=== PATIENT | male | born 1975 | race Caucasian/White ===

== ENCOUNTER → 2018-01-09 | Outpatient (CLI) | payer SELFPAY | LOC: LABNPT 18:34 | PROVIDERS: ATTEND Nurse Practitioner Family | DX: L02.416 Cutaneous abscess of left lower limb (principal) | CPT/HCPCS: 87070; 87205 ==

== ENCOUNTER → 2021-03-23 | Outpatient (CLI) | payer OTHER ==
--- NOTE | 2021-03-23 19:25 | Diagnostic Imaging Report ---
INDICATION: Cough, shortness breath. COMPARISON: None. EXAMINATION: Frontal and lateral views of the chest. FINDINGS: Clear lungs, bilaterally. Heart is normal. There is no pneumothorax but osseous structures are normal. IMPRESSION: Negative chest. Dictated by: Dictated on workstation # [id number]
[2021-03-23 19:34] LABS: BASOPHILS # (AUTO) 0.1 10^3/uL (0.0-0.1); BASOPHILS % (AUTO) 1 % (0-10); EOSINOPHILS # (AUTO) 0.4 10^3/uL (0.0-0.3); EOSINOPHILS % (AUTO) 4 % (0-10); HEMATOCRIT 50 % (40-54); LYMPHOCYTES # (AUTO) 1.7 10^3/uL (1.0-4.0); LYMPHOCYTES % (AUTO) 21 % (12-44); MEAN CORPUSCULAR HEMOGLOBIN 32 pg (25-34); MEAN CORPUSCULAR HGB CONC 34 g/dL (32-36); MEAN CORPUSCULAR VOLUME 95 fL (80-99); MONOCYTES # (AUTO) 0.7 10^3/uL (0.0-1.0); MONOCYTES % (AUTO) 9 % (0-12); NEUTROPHILS # (AUTO) 5.3 10^3/uL (1.8-7.8); NEUTROPHILS % (AUTO) 65 % (42-75); PLATELET COUNT 248 10^3/uL (130-400); WHITE BLOOD COUNT 8.2 10^3/uL (4.3-11.0)
[2021-03-23 19:48] LABS: ALBUMIN 4.2 GM/DL (3.2-4.5)
[2021-03-23 19:49] LABS: CHLORIDE 107 MMOL/L (98-107); SODIUM 139 MMOL/L (135-145)
[2021-03-23 19:50] LABS: CALCIUM 9.4 MG/DL (8.5-10.1)
[2021-03-23 19:51] LABS: GLUCOSE 156 MG/DL (70-105); TOTAL PROTEIN 7.5 GM/DL (6.4-8.2)
[2021-03-23 19:52] LABS: CARBON DIOXIDE 20 MMOL/L (21-32)
[2021-03-23 19:53] LABS: BILIRUBIN,TOTAL 0.4 MG/DL (0.1-1.0)
[2021-03-23 19:54] LABS: ALKALINE PHOSPHATASE 88 U/L (40-136)
[2021-03-23 19:55] LABS: CREATININE SERUM 1.03 MG/DL (0.60-1.30); GFR ESTIMATED 91
[2021-03-23 19:56] LABS: BUN/CREATININE RATIO 12
[2021-03-23 19:58] LABS: ALANINE AMINOTRANSFERASE 34 U/L (0-55)
== END ==
LOC: RAD 19:04
PROVIDERS: ATTEND Physician Assistant
DX: I10 Essential (primary) hypertension (principal); R06.02 Shortness of breath; R05.8 Other specified cough; R07.89 Other chest pain
CPT/HCPCS: 36415; 71046; 80053; 82553; 83874; 84484; 85025; 85379

== ENCOUNTER 2022-04-27 06:11 | Emergency (ER) | payer OTHER ==
[~2022-04-27] VITALS: Ht 170.2 cm; Wt 108.9 kg
[2022-04-27] MEDS ORDERED: morphine INJ 10 MG/ML 1ML (SYR OR VIAL) IVP STA (06:23)
--- NOTE | 2022-04-27 06:32 | ED Abdominal Pain ---
General Chief Complaint: Abdominal/GI Problems Stated Complaint: ABD PAIN Source of Information: Patient Exam Limitations: No Limitations History of Present Illness Date Seen by Provider: Apr 27, 2022 Time Seen by Provider: 06:16 Initial Comments 46-year-old male presents to the emergency department for epigastric pain. Symptoms started about 5:00 this morning and have been intermittent but severe since that time. He will have brief episodes of severe stabbing type pains in his mid epigastric region, right upper quadrant and then have a few minutes of no pain. No nausea or vomiting. No radiation of the pain. No obvious aggravating or alleviating factors. Has had associated loose stools 4-5 times this morning, nonbloody. Has never had similar pains in the past. Has never had abdominal surgeries. Last normal bowel movement was yesterday evening. Denies any documented fevers but thinks he may have one now. No sick contacts. Chest pain or shortness of breath. He quit drinking alcohol heavily about 4 weeks ago, has been abstaining from alcohol since that time Allergies and Home Medications Allergies Coded Allergies: No Known Drug Allergies (Unverified , 04/27/22) Patient Home Medication List Home Medication List Reviewed: Yes Review of Systems Review of Systems Constitutional: no symptoms reported EENTM: No Symptoms Reported Respiratory: No Symptoms Reported Cardiovascular: No Symptoms Reported Gastrointestinal: Abdominal Pain, Diarrhea Genitourinary: No Symptoms Reported Musculoskeletal: no symptoms reported Skin: no symptoms reported Psychiatric/Neurological: No Symptoms Reported Endocrine: No Symptoms Reported Hematologic/Lymphatic: No Symptoms Reported Past Vdxthgx-Jotnht-Iowhpj Hx Patient Social History Tobacco Use?: Yes Use of E-Cig and/or Vaping dev: No Substance use?: No Alcohol Use?: Yes Alcohol type: Other (Quit drinking 4 weeks ago, previously heavy drinker) Family Medical History Reviewed Nursing Family Hx No Pertinent Family Hx Physical Exam Vital Signs Vital Signs - First Documented 04/27/22 06:17 Temp 36.7 Pulse 118 Resp 20 B/P (MAP) 168/136 (147) Pulse Ox 97 O2 Delivery Room Air Capillary Refill : Height/Weight/BMI Height: '" Weight: lbs. oz. kg; BMI Method: General Appearance: WD/WN, moderate distress, other (Patient has episodes of severe pain where this is abdomen. In between he has no pain and is comfortable in the bed) HEENT: normal ENT inspection, pharynx normal Neck: full range of motion, supple, normal inspection Respiratory: chest non-tender, lungs clear, normal breath sounds, no respiratory distress, no accessory muscle use Cardiovascular: regular rate, rhythm, no edema, no gallop, no JVD, no murmur Gastrointestinal: normal bowel sounds, soft, no organomegaly, tenderness (Tenderness palpation the epigastric region, right upper quadrant with voluntary guarding. No rebound tenderness. No mass organomegaly. No skin changes.) Extremities: normal range of motion, non-tender, normal inspection, normal capillary refill Back: normal inspection, no CVA tenderness, no vertebral tenderness Neurologic/Psychiatric: alert, normal mood/affect, oriented x 3 Skin: normal color, warm/dry Progress/Results/Core Measures Results/Orders Lab Results Laboratory Tests Test 04/27/22 06:34 Range/Units White Blood Count 17.1 H 4.3-11.0 10^3/uL Red Blood Count 6.19 H 4.30-5.52 10^6/uL Hemoglobin 19.4 H 13.3-17.7 g/dL Hematocrit 57 H 40-54 % Mean Corpuscular Volume 92 80-99 fL Mean Corpuscular Hemoglobin 31 25-34 pg Mean Corpuscular Hemoglobin Concent 34 32-36 g/dL Red Cell Distribution Width 13.2 10.0-14.5 % Platelet Count 281 130-400 10^3/uL Mean Platelet Volume 9.8 9.0-12.2 fL Immature Granulocyte % (Auto) 0 % Neutrophils (%) (Auto) 85 H 42-75 % Lymphocytes (%) (Auto) 8 L 12-44 % Monocytes (%) (Auto) 6 0-12 % Eosinophils (%) (Auto) 1 0-10 % Basophils (%) (Auto) 1 0-10 % Neutrophils # (Auto) 14.5 H 1.8-7.8 10^3/uL Lymphocytes # (Auto) 1.3 1.0-4.0 10^3/uL Monocytes # (Auto) 0.9 0.0-1.0 10^3/uL Eosinophils # (Auto) 0.2 0.0-0.3 10^3/uL Basophils # (Auto) 0.1 0.0-0.1 10^3/uL Immature Granulocyte # (Auto) 0.1 0.0-0.1 10^3/uL Neutrophils % (Manual) 88 % Lymphocytes % (Manual) 6 % Monocytes % (Manual) 5 % Eosinophils % (Manual) 1 % Basophils % (Manual) 0 % Band Neutrophils 0 % Blood Morphology Comment NORMAL Sodium Level 140 135-145 MMOL/L Potassium Level 4.3 3.6-5.0 MMOL/L Chloride Level 109 H 98-107 MMOL/L Carbon Dioxide Level 18 L 21-32 MMOL/L Anion Gap 13 5-14 MMOL/L Blood Urea Nitrogen 20 H 7-18 MG/DL Creatinine 1.03 0.60-1.30 MG/DL Estimat Glomerular Filtration Rate 91 BUN/Creatinine Ratio 19 Glucose Level 132 H 70-105 MG/DL Calcium Level 9.4 8.5-10.1 MG/DL Corrected Calcium 9.1 8.5-10.1 MG/DL Total Bilirubin 0.8 0.1-1.0 MG/DL Aspartate Amino Transf (AST/SGOT) 24 5-34 U/L Alanine Aminotransferase (ALT/SGPT) 34 0-55 U/L Alkaline Phosphatase 79 40-136 U/L Total Protein 7.9 6.4-8.2 GM/DL Albumin 4.4 3.2-4.5 GM/DL Lipase 20 8-78 U/L My Orders Orders - AREN BROUSSARD DO Comprehensive Metabolic Panel (04/27/22 06:23) Lipase (04/27/22 06:23) Cbc With Automated Diff (04/27/22 06:23) Morphine Injection (Morphine Injection (04/27/22 06:23) Ct Abdomen/Pelvis W (04/27/22 06:23) Ondansetron Injection (Zofran Injectio (04/27/22 06:45) Manual Differential (04/27/22 06:34) Iohexol Injection (Omnipaque 350 Mg/Ml 1 (04/27/22 07:45) Received Contrast (Hold Metformin- Contr (04/27/22 07:45) Ns (Ivpb) (Sodium Chloride 0.9% Ivpb Bag (04/27/22 07:45) Medications Given in ED Current Medications Medications Dose Ordered Sig/Thomas Route Start Time Stop Time Status Last Admin Dose Admin Ondansetron HCl 8 mg ONCE ONCE IVP 04/27/22 06:45 04/27/22 06:46 DC 04/27/22 06:47 8 MG Vital Signs/I&O 04/27/22 06:17 Temp 36.7 Pulse 118 Resp 20 B/P (MAP) 168/136 (147) Pulse Ox 97 O2 Delivery Room Air Departure Communication (Admissions) Patient is hemodynamically stable, nontoxic. He is afebrile. He does have leukocytosis, 17,000. We do not have ultrasound available on the weekends except to rule out certain things so CT scan is undertaken given the significant amount of pain that the patient has been, though it is intermittent. CT scan shows evidence of gallstones. Labs are unremarkable including normal LFTs, alk phos and lipase. There is no evidence for biliary obstruction at this time. No other indication for acute intra-abdominal emergency. No he does have a leukocytosis I doubt cholecystitis as he is afebrile and pain is intermittent. He has not had any pain since I gave him morphine early on in his emergency department course. He is drinking water now and had no recurrence of his symptoms. I spoke with Dr. Cruz at and discussed the case with him. He request the patient to follow-up in his clinic. I inquired about possible outpatient ultrasound ordered by myself. He states he probably does not need it given his symptomatology and CT scan findings. Comfortable agreeable discharge at this time and follow-up with general surgery for further evaluation and treatment. He will be discharged with pain medication, nausea medicine and recommendation to maintain a bland diet. He is given strict return precautions for severe pain is not controlled by medications, inability to tolerate p.o. I advise he could go to work but we will go ahead and give him a work note for Friday just in case he has pain that would cause limitation. Impression Primary Impression: Cholelithiasis Qualified Codes: K80.20 - Calculus of gallbladder without cholecystitis without obstruction Additional Impression: Biliary colic Disposition: HOME, SELF-CARE Condition: Stable Departure-Patient Inst. Referrals: DENNYS CRUZ MD NO,LOCAL PHYSICIAN (PCP) Primary Care Physician Patient Instructions: Gallstones (DC) Add. Discharge Instructions: Maintain a bland diet as discussed. [place] or fatty foods are likely to cause an increase in pain. Take the pain medication as prescribed as needed. This may make you drowsy or cause constipation. Do not drive or make important decisions while taking it and you may want to consider stool softener while taking it. Use the nausea medicine as needed by dissolving it under your tongue. Increase your fluids at home. Follow-up with Dr. Cruz by calling to schedule an appointment. Return to the emergency department for any severe pain that is not controlled by pain medications, fevers or if your symptoms change in any way concerning to you. All discharge instructions reviewed with patient and/or family. Voiced understanding. Scripts Hydrocodone/Acetaminophen (Hydrocodone-Acetamin 5-325 mg) 5 Mg-325 Mg Tablet 1 TAB PO Q4H PRN for PAIN-MODERATE (5-7) for 3 Days, #12 TAB Prov: AREN BROUSSARD DO 04/27/22 Ondansetron (Ondansetron Odt) 8 Mg Tab.rapdis 8 MG SL Q6H PRN for NAUSEA/VOMITING for 7 Days, #28 TAB Prov: AREN BROUSSARD DO 04/27/22 Work/School Note: Work Release Form Date Seen in the Emergency Department: Apr 27, 2022 Return to Work: Apr 30, 2022 Restrictions: No Restrictions AREN BROUSSARD DO Apr 27, 2022 06:32
[2022-04-27] MEDS ORDERED: ONDANSETRON 4 MG/2 ML (SDV) Z0FRAN IVP ONE (06:45)
[2022-04-27 06:49] LABS: BASOPHILS # (AUTO) 0.1 10^3/uL (0.0-0.1); BASOPHILS % (AUTO) 1 % (0-10); EOSINOPHILS # (AUTO) 0.2 10^3/uL (0.0-0.3); EOSINOPHILS % (AUTO) 1 % (0-10); HEMATOCRIT 57 % (40-54); HEMOGLOBIN 19.4 g/dL (13.3-17.7); LYMPHOCYTES # (AUTO) 1.3 10^3/uL (1.0-4.0); LYMPHOCYTES % (AUTO) 8 % (12-44); MEAN CORPUSCULAR HEMOGLOBIN 31 pg (25-34); MEAN CORPUSCULAR HGB CONC 34 g/dL (32-36); MEAN CORPUSCULAR VOLUME 92 fL (80-99); MEAN PLATELET VOLUME 9.8 fL (9.0-12.2); MONOCYTES # (AUTO) 0.9 10^3/uL (0.0-1.0); MONOCYTES % (AUTO) 6 % (0-12); NEUTROPHILS # (AUTO) 14.5 10^3/uL (1.8-7.8); NEUTROPHILS % (AUTO) 85 % (42-75); PLATELET COUNT 281 10^3/uL (130-400); WHITE BLOOD COUNT 17.1 10^3/uL (4.3-11.0)
[2022-04-27 06:59] LABS: ALBUMIN 4.4 GM/DL (3.2-4.5)
[2022-04-27 07:00] LABS: POTASSIUM 4.3 MMOL/L (3.6-5.0)
[2022-04-27 07:01] LABS: CALCIUM 9.4 MG/DL (8.5-10.1)
[2022-04-27 07:02] LABS: TOTAL PROTEIN 7.9 GM/DL (6.4-8.2)
[2022-04-27 07:03] LABS: BAND NEUTROPHILS 0 %; BASOPHILS % (MANUAL) 0 %; EOSINOPHILS % (MANUAL) 1 %; LYMPHOCYTES % (MANUAL) 6 %; MONOCYTES % (MANUAL) 5 %; NEUTROPHILS % (MANUAL) 88 %; RBC MORPH NORMAL
[2022-04-27 07:04] LABS: BILIRUBIN,TOTAL 0.8 MG/DL (0.1-1.0)
[2022-04-27 07:06] LABS: CREATININE SERUM 1.03 MG/DL (0.60-1.30)
--- NOTE | 2022-04-27 07:40 | Diagnostic Imaging Report ---
PROCEDURE: CT abdomen and pelvis with contrast. TECHNIQUE: Multiple contiguous axial images were obtained through the abdomen and pelvis after administration of intravenous contrast. Auto Exposure Controls were utilized during the CT exam to meet ALARA standards for radiation dose reduction. All CT scans use one or more of the following dose optimizing techniques: automated exposure control, MA and/or KvP adjustment based on patient size and exam type or iterative reconstruction. INDICATION: Severe epigastric and right upper quadrant abdominal pain COMPARISON: None FINDINGS: Lung bases demonstrate no acute abnormality. The heart is normal in size. The liver demonstrates no focal lesions. Small subcentimeter calculi are seen in the gallbladder. There is no pericholecystic edema seen. The spleen appears normal. The pancreas appears normal. The adrenal glands are normal. The kidneys demonstrate no enhancing lesions or hydronephrosis. The appendix is normal. The bowel loops are nondistended without obstruction. There are multiple fluid-filled loops of small bowel and the colon is fluid-filled. No free air or free fluid is seen. There is no lymphadenopathy. The aorta is normal in caliber. No acute osseous abnormality is seen. There are degenerative changes in the spine. IMPRESSION: 1. Cholelithiasis. 2. Fluid-filled loops of small bowel, could be due to an enteritis. Fluid-filled colon is consistent with diarrheal disease. Dictated by: Dictated on workstation # [id number]
[2022-04-27] MEDS ORDERED: HOLD METFORMIN - RECEIVED CONTRAST 20 ML VIAL IV SCH (07:45)
[2022-04-27] MEDS ORDERED: IOHEXOL 350 MG/ML 100 ML (OMNIPAQUE 350) VIAL IV ONE (07:45)
[2022-04-27] MEDS ORDERED: NS 100 ML (IVPB) BAG IV ONE (07:45)
[2022-04-27] MEDS ORDERED: ACHD5005 PO (07:48)
[2022-04-27] MEDS ORDERED: ONDA8TAB13 SL (07:48)
[2022-04-27 08:02] VITALS: BP 171/92
== END 2022-04-27 08:00 | disposition home or self-care (01) ==
LOC: EDUNIT# 06:11 → ER 06:13
DX: K80.70 Calculus of gallbladder and bile duct without cholecystitis without obstruction (principal); D72.829 Elevated white blood cell count, unspecified; Z28.310 Unvaccinated for COVID-19
CPT/HCPCS: 36415; 74177; 80053; 83690; 85007; 85027